=== PATIENT | male | born 1990 | race Caucasian/White ===

== ENCOUNTER 2017-04-27 14:08 | Emergency (ER) | payer OTHER ==
[2017-04-27 14:17] VITALS: BP 155/87; PULSE 89; TEMP 98.3; BMI 36.8
[2017-04-27] MEDS ORDERED: SODIUM CHLORIDE 1,000 ML IV STA (14:42)
[2017-04-27] MEDS ORDERED: ONDANSETRON 4 MG/2 ML VIAL IVPUSH ONE (14:43)
[2017-04-27] MEDS ORDERED: PANTOPRAZOLE SODIUM 40 MG VIAL IVPUSH ONE (14:43)
--- NOTE | 2017-04-27 14:45 | PDOC ---
Attending Attestation - HPI HPI: 04/27/17 15:12 The patient is a 23 year old male with a significant PMH of GERD who presents to the emergency department with blood-streaked vomiting beginning approximately last night s/p binge drinking. He reports vomiting last night with no blood but notes some blood mixed with his emesis this morning after eating. Allergies: NKA PCP: Dr. Mani Mercado <Nile Harper - Last Filed: 04/27/17 15:12> - Resident Resident Name: Raj Thomas - HPI HPI: 04/27/17 16:10 I, Dr. Ying Shah, attest that the scribes documentation that appears above has been prepared under my direction and personally reviewed by me. I confirmed that the note above accurately reflects all work, treatment, procedures, and medical decision-making performed by me. 04/27/17 16:13 PE: general: alert and oriented x3, non toxic appearing lungs: + bs mark cta Heart: s1s2 regular abd: + bs abd soft no guarding or tenderness - Physicial Exam PE: 04/27/17 16:10 Pt seen and examined at bedside in no distress at present, pt received a liter of fluid and feels fine at present, no longer c/o nausea or vomiting. Pt went out drinking last night and todya had nausea sand vomiting. At the end of his last epsiode of vdenommiting there was blood and so he came to ed for evaluation. PT - Medical Decision Making 04/27/17 16:14 27 y/o male presented to ED with his mom for eval of nasuea and vomitting after going out drinking last night. PT noted some blood at the end of his last vomitting episode and came to ED. Pt with Nl labs HGB of 14, no further episodes of vomiting, no abdominal pain, Pt feels fine and is hungry. Will po challnge and if no further vomiting will dc home with zantac 150mg po bid for gastritis and have pt f/u with GI and with pcp as out pt. PT to return to ED for abdominal pain, any additional episodes of vomiting or as needed. PT agrees with this dc plan <Ying Shah - Last Filed: 04/27/17 16:17>
--- NOTE | 2017-04-27 14:54 | PDOC ---
History of Present Illness - General Chief Complaint: Vomiting Blood Stated Complaint: BLOOD IN VOMIT Time Seen by Provider: 04/27/17 14:22 History Source: Patient - History of Present Illness Initial Comments: 04/27/17 14:50 23M with pmh of GERD presents with episode of blood-streaked vomiting this morning after a night of binge-drinking last night for a friend's going away democrat. Doesnt recall how many drinks but vomited last night before bed. Woke up nauseated asking for food. Ate a plate of pasta and immediately vomited with streaks of mary red blood. Never happened to him before. Had a negative endoscopy 9 years ago for GERD. Past History - Past Medical History Allergies/Adverse Reactions: Allergies Allergy/AdvReac Type Severity Reaction Status Date / Time No Known Allergies Allergy Verified 04/27/17 14:16 Home Medications: Ambulatory Orders Ranitidine HCl [Zantac] 300 mg PO PRN PRN #30 tablet 04/27/17 COPD: No - Immunization History Immunization Up to Date: Yes - Suicide/Smoking/Psychosocial Hx Smoking History: Never smoked Have you smoked in the past 12 months: No Hx Alcohol Use: No Drug/Substance Use Hx: No Substance Use Type: None Review of Systems - Review of Systems Able to Perform ROS?: Yes Is the patient limited Macedonian proficient: No Constitutional: No: Symptoms Reported HEENTM: No: Symptoms Reported Respiratory: No: Symptoms reported Cardiac (ROS): No: Symptoms Reported ABD/GI: Yes: See HPI, Nausea : No: Symptoms Reported Musculoskeletal: No: Symptoms Reported All Other Systems: Reviewed and Negative *Physical Exam - Vital Signs Last Vital Signs Temp Pulse Resp BP Pulse Ox 98.3 F 89 18 155/87 99 04/27/17 14:14 04/27/17 14:14 04/27/17 14:14 04/27/17 14:14 04/27/17 14:14 - Physical Exam General Appearance: Yes: Appropriately Dressed, Obese. No: Apparent Distress HEENT: positive: EOMI, SINDY, Normal ENT Inspection, Normal Voice Respiratory/Chest: positive: Lungs Clear, Normal Breath Sounds. negative: Chest Tender, Respiratory Distress Cardiovascular: positive: Regular Rhythm, Regular Rate, S1, S2 Gastrointestinal/Abdominal: positive: Normal Bowel Sounds, Soft, Protuberent. negative: Tender Musculoskeletal: positive: Normal Inspection Extremity: positive: Normal Capillary Refill, Normal Inspection, Normal Range of Motion Neurologic: positive: Fully Oriented, Alert, Normal Mood/Affect, Normal Response , Motor Strength 08/03 ED Treatment Course - LABORATORY CBC & Chemistry Diagram: 04/27/17 14:53 04/27/17 14:53 - RADIOLOGY Radiology Studies Ordered: Category Date Time Status CHEST PA & LAT [RAD] Stat Radiology 04/27/17 14:43 Ordered Medical Decision Making - Medical Decision Making 04/27/17 15:13 Basic labs, coags. Given ns, protonix and zofran for nausea, stomach upset. *DC/Admit/Observation/Transfer Diagnosis at time of Disposition: Hematemesis - Discharge Dispostion Disposition: HOME Condition at time of disposition: Improved Admit: No - Referrals Referrals: Mani Mercado MD [Primary Care Provider] - Alessio Hawkins DO [Staff Physician] - - Patient Instructions Printed Discharge Instructions: DI for Alcoholic Gastritis, DI for Heather- Kimball Syndrome Additional Instructions: Follow up with Dr. Hawkins Toll Relief Operator within 2-3 days. Follow up with you pcp dr. Mercado within 2-4 days. Come back to the ER for any new, worsening or concerning symptom such as repeated bloody vomiting or black tarry stool. - Post Discharge Activity
[2017-04-27] MEDS ORDERED: FAMOTIDINE 20 MG/50 ML IVPB 20 MG/50 ML MG IVPB ONE (14:55)
[2017-04-27] MEDS ORDERED: ONDANSETRON 4 MG/2 ML VIAL ONE (14:55)
[2017-04-27 15:04] LABS: BASO % 0.7 % (0-2.0); EOS % 0.5 % (0-4.5); HEMOGLOBIN 14.2 GM/dL (11.7-16.9); LYMPH % 22.4 % (8-40); MCH 26.5 pg (25.7-33.7); MCHC 33.1 g/dl (32.0-35.9); MEAN PLT VOLUME 8.9 fl (7.5-11.1); MONO % 6.3 % (3.8-10.2); NEUT % 70.1 % (42.8-82.8); PLATELET COUNT 203 K/MM3 (134-434); RBC 5.38 M/mm3 (4.00-5.60); RDW 13.4 % (11.9-15.9); WHITE BLOOD COUNT 9.8 K/mm3 (4.0-10.0)
[2017-04-27 15:16] LABS: INR 0.95 (0.82-1.09); PROTHROMBIN TIME (PATIENT) 10.7 SEC (9.98-11.88)
[2017-04-27 15:19] LABS: ACTIVATED PTT 27.8 SECONDS (26.9-34.4)
[2017-04-27 15:41] LABS: ALBUMIN 4.4 g/dl (3.4-5.0); ANION GAP 11 (8-16); BILIRUBIN,TOTAL 0.7 mg/dL (0.2-1.0); BLOOD UREA NITROGEN 15 mg/dL (7-18); CALCIUM 9.1 mg/dL (8.5-10.1); CHLORIDE 101 mmol/L (98-107); CO2 27 mmol/L (21-32); CREATININE 0.9 mg/dL (0.7-1.3); GLUCOSE,RANDOM 93 mg/dL (74-106); POTASSIUM 4.1 mmol/L (3.5-5.1); SGOT/AST 28 U/L (15-37); SGPT/ALT 40 U/L (12-78); SODIUM 139 mmol/L (136-145); TOT PROT 7.8 g/dl (6.4-8.2)
[2017-04-27 15:42] LABS: ALK PHOS 64 U/L (45-117)
== END 2017-04-27 16:59 | disposition home or self-care (01) ==
LOC: JER 14:08
PROC: 3E033GC Introduction of Other Therapeutic Substance into Peripheral Vein, Percutaneous Approach (ICD-10-PCS; principal; 2017-04-27)
PROC: 3E033GC Introduction of Other Therapeutic Substance into Peripheral Vein, Percutaneous Approach (ICD-10-PCS; 2017-04-27)
DX: K92.0 Hematemesis (principal); F10.10 Alcohol abuse, uncomplicated
CPT/HCPCS: 36415; 71046-TC; 80053; 85025; 85610; 85730; 86850; 86900; 86901; 96374; 96375; 99283-25

== ENCOUNTER 2018-03-11 16:38 | Emergency (ER) | payer OTHER ==
[2018-03-11 17:04] VITALS: BP 136/79; PULSE 93; TEMP 99.1; BMI 36.0
--- NOTE | 2018-03-11 17:30 | PDOC ---
History of Present Illness - General Chief Complaint: Injury Stated Complaint: LEFT ANKLE PAIN Time Seen by Provider: 03/11/18 17:24 - History of Present Illness Initial Comments: 03/11/18 17:28 27-year-old male with a past medical history significant for gout and asked reflux presents for evaluation of 8 rheumatic left ankle pain times one day without systemic symptoms Past History - Past Medical History Allergies/Adverse Reactions: Allergies Allergy/AdvReac Type Severity Reaction Status Date / Time No Known Allergies Allergy Verified 04/27/17 14:16 Home Medications: Ambulatory Orders Ranitidine HCl [Zantac] 300 mg PO PRN PRN #30 tablet 04/27/17 Methylprednisolone [Medrol Dose Pelon] 4 mg PO ASDIR #21 tablet 03/11/18 COPD: No Other medical history: gout - Surgical History Appendectomy: No Gastric Stapling: No Lung Surgery: No Neurologic Surgery: No - Immunization History Immunization Up to Date: Yes - Suicide/Smoking/Psychosocial Hx Smoking History: Never smoked Have you smoked in the past 12 months: No Information on smoking cessation initiated: No Hx Alcohol Use: No Drug/Substance Use Hx: No Substance Use Type: None Review of Systems - Review of Systems Musculoskeletal: Yes: Joint Pain *Physical Exam - Vital Signs Last Vital Signs Temp Pulse Resp BP Pulse Ox 99.1 F 93 H 18 136/79 100 03/11/18 17:02 03/11/18 17:02 03/11/18 17:02 03/11/18 17:02 03/11/18 17:02 - Physical Exam Comments: 03/11/18 17:28 Left ankle skin color and temperature are normal is mild anterior lateral swelling. Mild joint line tenderness anterior laterally. Full range of motion without much discomfort. No gross sensorimotor deficits. Is neurovascularly intact. Moderate Sedation - Procedure Monitoring Vital Signs: Procedure Monitoring Vital Signs Temperature 99.1 F 03/11/18 17:02 Pulse Rate 93 H 03/11/18 17:02 Respiratory Rate 18 03/11/18 17:02 Blood Pressure 136/79 03/11/18 17:02 O2 Sat by Pulse Oximetry (%) 100 03/11/18 17:02 *DC/Admit/Observation/Transfer Diagnosis at time of Disposition: Gout of ankle - Discharge Dispostion Disposition: HOME Condition at time of disposition: Stable Decision to Admit order: No - Prescriptions Prescriptions: Methylprednisolone [Medrol Dose Pelon] 4 mg PO ASDIR #21 tablet - Referrals Referrals: Hi Harden MD [Non Staff, Medical] - Hernandez Dodge MD [Non Staff, Medical] - Talha Fernandez [Non Staff, Medical] - Osman Clarke MD [Non Staff, Medical] - Vianney Celis MD [Non Staff, Medical] - Daphne Rizzo MD [Non Staff, Medical] - Bella Heck [Non Staff, Medical] - Bobo Basilio MD [Non Staff, Medical] - Axel Keith [Non Staff, Medical] - Foreign Anguiano [Non Staff, Medical] - Sherrill Anguiano MD [Staff Physician] - - Patient Instructions Printed Discharge Instructions: DI for Gout, Gout Additional Instructions: Up with rheumatology. Return to the emergency room should symptoms worsen or go unresolved follow-up with rheumatology in one to 2 days. Please take the steroid pack as directed. - Post Discharge Activity
== END 2018-03-11 17:35 | disposition home or self-care (01) ==
LOC: JERFT 16:38
DX: M10.9 Gout, unspecified (principal)
CPT/HCPCS: 99281-25